=== PATIENT | female | born 1980 | race African-American/Black ===

== ENCOUNTER 2019-10-29 08:03 | Outpatient (CLI) | payer BC, SELFPAY ==
--- NOTE | 2019-11-11 02:31 | SLEEP_ITS ---
Split-Night Study. DATE OF STUDY: 10/29/2019 ORDERING PHYSICIAN: Carlos Dowell D.O. REASON FOR STUDY: Atrial fibrillation event, frequent snoring. HISTORY: This patient is a 39-year-old female, 5 feet 5 inches, 279 pounds with a body mass index of 46.4. She does have hypertension. Her complaint operator referred her because she had an episode of atrial fibrillation. She does snore frequently and occasionally is loud enough that others complain about it. She rarely awakens at night with heartburn or coughing. She does not awaken from sleep short of breath. There is a family history with her mother having sleep apnea. She occasionally has trouble sleeping with a cold. She does not gasp for breath at night or have breathing problems reported to her by others. She rarely sweats excessively at night, notices her heart pounding irregularly at night, rarely falls asleep during the day. She does not fall asleep involuntarily or while driving. She does not have loss of muscle tone with strong emotion and does not have daytime difficulties due to excessive sleepiness. She is a military exchange wireless manager. She does not have the feeling of paralysis on waking or falling asleep and she does not have vivid dreamlike scenes upon waking or falling asleep. She is never afraid to go to sleep. She rarely has nightmares, occasionally remembers her dreams, occasionally has racing thoughts. Rarely has sadness, depression, or anxiety. She does not have muscular tension or notices parts of her body jerking. She does not kick at night. She rarely has crawly achy feelings in her legs. She does not have leg pain at night and does not have morning jaw pain. She rarely grinds her teeth at night. She is not bothered by pain during the day or at night. She rarely wakes up feeling stiff in the morning with sore achy muscles or pain in the neck and spine. Normal bedtime is 11-12 midnight, falling asleep quickly, waking twice at night to use the bathroom. She wakes in the morning at 7 a.m. On the weekends, she will go to bed 1 hour later and sleep 1-2 hours later. She does watch TV before falling asleep. She does not take naps. A short nap can be refreshing. Most of the time she feels good in the morning. She feels better in the morning than other times a day. MEDICAL COMORBIDITIES: Hypertension. Atrial fibrillation July 2019, with a successful cardioversion. Snoring. MEDICATIONS: 1. Lisinopril 40 mg a day. 2. Amlodipine 5 mg a day. 3. Metoprolol 25 mg a day. 4. Aspirin 325 mg a day. HABITS: Never smoked tobacco. Caffeine, 2 cups daily. Alcohol, 1 glass on weekends. No recreational drugs. DESCRIPTION OF THE STUDY: On the Sayner Sleepiness Scale, her score is 19. This is very elevated. This was conducted as a split-night nocturnal polysomnogram using the Crovat multiple channel system including EOG, EEG, submental EMG, EKG, nasal and oral airflow using thermistors and nasal pressure sensors, chest, and abdominal belts, body position data and pulse oximetry. The study was scored using CMS guidelines. Baseline portion recording time 204.4 minutes. Sleep time 127.4 minutes. Sleep efficiency 62.3% which is low. Sleep latency prolonged 62 minutes. REM latency 129 minutes. There were 6 awakenings and she spent 15 minutes awake after sleep onset. Sleep architecture showed 9% stage 1 sleep, 80.4% stage 2 sleep, 0.4% stage 3 sleep and 10.1% stage REM. She spent 98.4% of this portion supine. She had a prolonged episode of wakefulness at the beginning, but overall her sleep was not excessively fragmented. She only had 1 brief REM episode. The apnea-hypopnea index was 6.6, all obstructive events. She had 7 obstructive hypopneas in supine REM for an index of 32.5, 2 obstructive apneas, 5 o
== END 2019-10-29 08:04 | disposition home or self-care (01) ==
LOC: ANHCSM 08:04
PROVIDERS: Visit Provider Internal Medicine Cardiovascular Disease
DX: G47.10 Hypersomnia, unspecified (principal); R06.83 Snoring
CPT/HCPCS: 95810

== ENCOUNTER 2024-06-22 00:49 | Day surgery (SDC) | payer BC, SELFPAY ==
[2024-06-01 14:13] VITALS: BMI 43.1
[2024-06-22 08:25] VITALS: BP 163/100; PULSE 73; RESP 16; TEMP 36.6; O2SAT 100
[2024-06-22 08:44] LABS: BEDSIDEPREGUCG Negative (Negative)
--- NOTE | 2024-06-22 08:48 | WPDANESEPPF ---
Anes - Initial Pre Proc Eval Procedure: Operation Date: 06/22/24 09:30 Proposed Procedures p Screening Colonoscopy - Jerel Nelson DO Date/Time: 06/22/24 08:48 Surgeon: Jerel Nelson DO Pre Op Diagnosis: Screening for malignant neoplasm of colon Patient Data Age: 44 Gender: F Height: 1.68 m Weight: 121.2 kg Last Vital Signs Temp 36.6 C 06/22/24 08:25 Pulse 73 06/22/24 08:25 Resp 16 06/22/24 08:25 BP 163/100 H 06/22/24 08:25 Pulse Ox 100 06/22/24 08:25 O2 Del Method Room Air 06/22/24 08:25 Allergies Allergy/AdvReac Type Severity Reaction Status Date / Time No Known Allergies Allergy Verified 06/22/24 08:37 Home Medications Medication Instructions Recorded Confirmed Type levonorgestrel 21 mcg/24 hr (up to 1 device intrauterine ONCE 08/02/19 06/22/24 History 8 years) 52 mg intrauterine device (Mirena) setigrlh-hpo-olwu-FA-Ca carb-vit K 1 tablet PO DAILY 08/02/19 06/22/24 History 18 mg iron-400 mcg-500 mg tablet (One-A-Day Womens Formula) aspirin 325 mg tablet,delayed 325 mg PO DAILY 08/26/19 06/22/24 History release metoprolol succinate 25 mg See Rx Instructions .Route .COMPLEX 01/13/24 06/22/24 History tablet,extended release 24 hr lisinopril 20 See Rx Instructions .Route 02/03/24 06/22/24 Rx mg-hydrochlorothiazide 12.5 mg .COMPLEX #90 tabs tablet atorvastatin 10 mg tablet 10 mg PO QHS #90 tabs 04/09/24 06/22/24 Rx flecainide 100 mg tablet See Rx Instructions .Route 04/13/24 06/22/24 Rx .COMPLEX #180 tabs amlodipine 5 mg tablet See Rx Instructions .Route 04/21/24 06/22/24 Rx .COMPLEX #90 tabs tirzepatide (weight loss) 15 See Rx Instructions .Route 05/25/24 06/22/24 Rx mg/0.5 mL subcutaneous pen .COMPLEX #6 mL injector (Zepbound) Laboratory Tests 06/22/24 08:25 POC Urine HCG, Qual Negative (Negative) Patient hx anesthesia problems: none Family hx anesthesia problems: none Results Review: All pre-operative results and documents have been reviewed as part of the pre-operative evaluation. [facility] Past Medical History Medical History (Updated 06/22/24 @ 08:48 by Alo Rivas MD) HLD (hyperlipidemia) HTN (hypertension) IUD (intrauterine device) in place Normal cardiac stress test 2011 Obesity LILIYA on CPAP Paroxysmal atrial fibrillation Prediabetes Surgical History Surgical History History of hernia surgery 7 or 8 y/o Family History Family History Grandparent Acute myocardial infarction History of blood clots Diabetes mellitus Father Chronic obstructive pulmonary disease Diabetes mellitus Hypertension Mother Hypertension Sibling Hypertension Other No family history of cardiovascular disease Social History Social History Smoking status: Never smoker Second hand tobacco smoke exposure: No Alcohol intake: current Drinks per week: 2 Substance use: never Substance use type: does not use Do You Feel Safe in your Home?: Yes Lack of Transportation: No Lack of Food: Never True Current Housing: I Have Housing Concerned About Future Housing: No Difficulty Paying Gas/Electric Bills: No Difficulty Paying for Meds: No Currently Unemployed: No Education: Master's Degree or Higher Difficulty w/ Childcare or Family Care: No Living arrangements: with family Gender identity (if verbalized by the patient): Female Spiritual care concerns: No Agree to blood products: Yes Anes - Eval Final PreProcedure Day of Procedure 06/22/24 08:48 Patient weight: morbidly obese Heart: regular rate and rhythm Lungs: clear to auscultation Airway: Mallampati scale class II Neurological: alert and oriented Last oral intake: >/= 8 hours ASA classification: III Emergent: no Anesthetic plan: pr
[2024-06-22] MEDS: LACTATED RINGERS 1,000 ML 150 ML IV CONT (08:50)
--- NOTE | 2024-06-22 09:24 | PM.IMHP ---
H&P: HPI History of Present Illness Date/Time: 06/22/24 09:24 Chief Complaint: screening for colorectal cancer Narrative: this is a 44-year-old woman who presents for colonoscopy. She has never had a colonoscopy before. She denies any hematochezia or melena. She denies any family history of colon cancer. Review of Systems Review of Systems: All systems reviewed & are unremarkable except as noted in HPI and below Constitutional: Constitutional: Denies chills, Denies fever(s), Denies headache(s) and Denies weight loss Eyes: Eyes: Denies change in vision ENT: Denies dizziness, Denies headache(s), Denies neck mass and Denies throat swelling Cardiovascular: Cardiovascular: Denies chest pain, Denies lightheadedness and Denies dyspnea Respiratory: Respiratory: Denies cough, Denies dyspnea and Denies wheezing Gastrointestinal: Gastrointestinal: Denies abdominal pain, Denies change in bowel habits, Denies nausea and Denies vomiting Genitourinary: Genitourinary: Denies hematuria and Denies dysuria Musculoskeletal: Musculoskeletal: Reports as per HPI Integumentary/Breasts: Skin/Breast: Reports as per HPI Neurologic: Denies dizziness and Denies headache(s) Allergic/Immunologic: Allergic/Immunologic: Denies throat swelling and Denies wheezing [facility] Past Medical History Medical History (Updated 06/22/24 @ 09:25 by Jerel Nelson DO) HLD (hyperlipidemia) HTN (hypertension) IUD (intrauterine device) in place Normal cardiac stress test 2011 Obesity LILIYA on CPAP Paroxysmal atrial fibrillation Prediabetes Surgical History Surgical History History of hernia surgery 7 or 8 y/o Family History Family History Grandparent Acute myocardial infarction History of blood clots Diabetes mellitus Father Chronic obstructive pulmonary disease Diabetes mellitus Hypertension Mother Hypertension Sibling Hypertension Other No family history of cardiovascular disease Social History Social History Smoking status: Never smoker Second hand tobacco smoke exposure: No Alcohol intake: current Drinks per week: 2 Substance use: never Substance use type: does not use Do You Feel Safe in your Home?: Yes Lack of Transportation: No Lack of Food: Never True Current Housing: I Have Housing Concerned About Future Housing: No Difficulty Paying Gas/Electric Bills: No Difficulty Paying for Meds: No Currently Unemployed: No Education: Master's Degree or Higher Difficulty w/ Childcare or Family Care: No Living arrangements: with family Gender identity (if verbalized by the patient): Female Spiritual care concerns: No Agree to blood products: Yes Meds Home Medications and Allergies Home Medications Medication Instructions Recorded Confirmed Type levonorgestrel 21 mcg/24 hr (up to 1 device intrauterine ONCE 08/02/19 06/22/24 History 8 years) 52 mg intrauterine device (Mirena) gcxwqele-glc-epqg-FA-Ca carb-vit K 1 tablet PO DAILY 08/02/19 06/22/24 History 18 mg iron-400 mcg-500 mg tablet (One-A-Day Womens Formula) aspirin 325 mg tablet,delayed 325 mg PO DAILY 08/26/19 06/22/24 History release metoprolol succinate 25 mg See Rx Instructions .Route .COMPLEX 01/13/24 06/22/24 History tablet,extended release 24 hr lisinopril 20 See Rx Instructions .Route 02/03/24 06/22/24 Rx mg-hydrochlorothiazide 12.5 mg .COMPLEX #90 tabs tablet atorvastatin 10 mg tablet 10 mg PO QHS #90 tabs 04/09/24 06/22/24 Rx flecainide 100 mg tablet See Rx Instructions .Route 04/13/24 06/22/24 Rx .COMPLEX #180 tabs amlodipine 5 mg tablet See Rx Instructions .Route 04/21/24 06/22/24 Rx .COMPLEX #90 tabs tirzepatide (weight loss) 15 See Rx Instructions .Route 05/25/24 06/22/24 Rx mg/0.5 mL subcutaneous pen .COMPLEX
[2024-06-22 09:55] VITALS: BP 150/93; PULSE 66; RESP 22; O2SAT 100
[2024-06-22 10:05] VITALS: BP 165/94; PULSE 61; RESP 19; O2SAT 100
[2024-06-22 10:15] VITALS: BP 170/93; PULSE 62; RESP 20; O2SAT 100
== END 2024-06-22 10:29 | disposition home or self-care (01) ==
PROVIDERS: Anesthesiology; PCP Family Medicine; Visit Provider Surgery
PROC: 0DJD8ZZ Inspection of Lower Intestinal Tract, Via Natural or Artificial Opening Endoscopic (ICD-10-PCS; CPT 45378; principal; 2024-06-22 09:30)
DX: Z12.11 Encounter for screening for malignant neoplasm of colon (principal); D12.3 Benign neoplasm of transverse colon; E78.5 Hyperlipidemia, unspecified; I10 Essential (primary) hypertension; R73.03 Prediabetes; G47.33 Obstructive sleep apnea (adult) (pediatric); I48.0 Paroxysmal atrial fibrillation; E66.01 Morbid (severe) obesity due to excess calories; Z68.41 Body mass index [BMI] 40.0-44.9, adult; Z79.82 Long term (current) use of aspirin; Z79.85 Long-term (current) use of injectable non-insulin antidiabetic drugs; Z98.890 Other specified postprocedural states; Z82.49 Family history of ischemic heart disease and other diseases of the circulatory system
CPT/HCPCS: 45380; 88305; J2003; J2704; J7120

== ENCOUNTER 2025-04-30 12:17 | Outpatient (CLI) | payer BC, SELFPAY ==
--- OUTSIDE RECORDS SUMMARY | 2025-04-30 12:22 | XMS_ITS | Clinical Summary ---
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 Gender Identity Not on file Sexual Orientation Not on file Plan of Treatment Health Maintenance Due Date Last Done Comments Hepatitis C Virus (HCV) Screening 1979 TdaP Immunization 1979 Hepatitis B Immunization (1 of 3 - 19+ 3-dose series) 1998 Pap Smear 2000 Cervical Cancer Screening (CCS) 2009 HPV/Cotest 2009 Cologuard 2024 Colonoscopy 2024 Colorectal Cancer Screening 2024 Immunochemical Fecal Occult Blood 2024 SARS-COV-2 Immunization ( season) 2024 08/25/2021, 12/24/2020, 12/03/2020 Influenza Immunization (#1) 05/09/202506/08, 08/08/2020 Respiratory Syncytial Virus (RSV) Immunization (Adult) (1 - 1-dose 75+ series) 2054 Human Papillomavirus (HPV) Immunization Aged Out No longer eligible b ased on patient's age to complete this topic Meningococcal Immunization (ACWY) Aged Out No longer eligible b ased on patient's age to complete this topic Pneumococcal Immunization Combined Aged Out No longer eligible b ased on patient's age to complete this topic Rotavirus Immunization Aged Out No lo nger eligible based on patient's age to complete this topic
[2025-04-30 12:54] LABS: INR 1.0; Prothrombin Time 13.0 Seconds (11.1-14.7)
[2025-04-30 12:55] LABS: Partial Thromboplastin Time 25.5 Seconds (22.3-36.8)
[2025-04-30 12:58] LABS: Alanine Aminotransferase 22 U/L (6-35); Albumin Level 4.2 g/dL (3.5-5.1); Alkaline Phosphatase 40 U/L (38-126); Anion Gap 6 mmol/L (4-12); Aspartate Amino Transferase 30 U/L (14-36); Bilirubin,Total 1.9 mg/dL (0.2-1.3); Blood Urea Nitrogen 22 mg/dL (7-17); Calcium 8.9 mg/dL (8.4-10.2); Carbon Dioxide 26 mmol/L (22-30); Chloride 104 mmol/L (98-107); Estimated Glomerular Filt Rate 50; Glucose 101 mg/dL (65-110); Potassium 3.8 mmol/L (3.4-5.0); Sodium 136 mmol/L (137-145); Total Protein 7.2 g/dL (6.3-8.2)
== END 2025-04-30 12:18 | disposition home or self-care (01) ==
PROVIDERS: Anesthesiology; PCP Family Medicine; Visit Provider Obstetrics & Gynecology
DX: E78.5 Hyperlipidemia, unspecified (principal); I48.91 Unspecified atrial fibrillation; I12.9 Hypertensive chronic kidney disease with stage 1 through stage 4 chronic kidney disease, or unspecified chronic kidney disease; N18.9 Chronic kidney disease, unspecified; D21.9 Benign neoplasm of connective and other soft tissue, unspecified
CPT/HCPCS: 36415; 80053; 85610; 85730; 86850; 86900; 86901

== ENCOUNTER 2025-05-03 01:16 | Day surgery (SDC) | payer BC, SELFPAY ==
[2025-04-29 10:05] VITALS: BMI 40.3
--- NOTE | 2025-04-29 10:17 | PC.NURSE ---
Report to the Outpatient Waiting Room, entrance under the green pavilion located off [facility], at time __0600am on date __05/03/25 . Planned Procedure Time: 0730am .? Time changes happen often and if your time is changed the preop area will call you the afternoon before. - You and your visitor will be asked to self-screen and do not enter if you have any COVID symptoms. Please call surgeon if you need to reschedule. - A mask is optional within the hospital at this time. Patients may have clear liquids (water, carbonated beverages, clear teas, apple juice) until 3 hours prior to surgery with a maximum of 20 ounces. - No food from midnight until time of surgery and no smoking, or chewing tobacco (or any form of nicotine). No chewing gum, candy or mints. (0430am) Take only the following medications with a SIP of water on the morning of surgery: Amlodipine and Metoprolol DO NOT STOP ANY OF YOUR OTHER PRESCRIPTION MEDICATIONS PRIOR TO SURGERY EXCEPT THE FOLLOWING Hold all vitamins and supplements for 3 days per anesthesiologist. Today is last dose 04/29/25. Medications to discontinue per physician __ASPIRIN per DR ENCINAS starting today Date to take last dose 04/29/25 HOLD Mounjaro till post op. Pt last dose was 04/26/25. Please no make-up, nail filipino, hairspray, perfume, deodorant, or body powder the day of surgery.? No jewelry (including any body piercings) or valuables the day of surgery, leave them at home.? Please take a shower or bath the night before, or the morning of, surgery with an antibacterial soap.? Wear comfortable, loose fitting clothing.?Overnight bag and good shoes - Jewelry must be removed prior to entering the operating room.? Rings and piercings that are not removed may be cut off. - The hospital will not accept responsibility for valuables.? - Please leave all valuables, including medications, at home the day of surgery. If you are going home after surgery, a licensed stock car driver must drive you home.? - NO public transportation without another adult if you receive anesthesia. - We recommend that an adult stay with you for 24 hours following discharge. - We also recommend that you do not drive, make important decision, drink alcoholic beverages, or take any drugs that were not prescribed by your health care provider for at least 24 hours after your discharge time. Follow any additional instructions given to you from your surgeon. Pt to get labs tomorrow at [facility] lab at [place]. Telephone instructions given to ___Patient and asked if any additional questions and then verbalized understanding. Patient advised to call surgeon office or pre surgery nurse liaison [phone] if any additional questions.
[2025-05-03] VITALS (12 sets, daily range): BP systolic 93–151; BP diastolic 50–88; PULSE 60–81; RESP 12–20; TEMP 36.2–36.8; O2SAT 97–100
--- OUTSIDE RECORDS SUMMARY | 2025-05-03 01:21 | XMS_ITS | Clinical Summary ---
Author Organization [facility] Address [address] [place] [address] Care Team Providers Care Doorshaker Name Role Phone Lindsey Melton DO Primary Care Provider [phone] Active Problems Problem Noted Date Diagnosed Date Atrial fibrillation 07/13/2014 Overview (12/13/2016): Atrial fibrillation Encounters Date Type Department Care Team Description 05/02/2025 9:00 AM CDT - 05/02/2025 11:59 PM CDT Hospital Encounter [facility] Breast [facility] ([facility] [address] [place] [address] Screening mammogram, encounter for Discharge Disposition: Discharge to home or self care from Last 3 Months Medical History Medical History Date Comments Hx Other Medical Obesity Hypertension Hypertension Hx Other Medical C section Hx Other Medical PAF Family History Medical History Relation Name Comments hodgkins disease Father Breast cancer Sister Relation Name Status Comments Father Sister Social History Tobacco Use Types Packs/Day Years Used Date Smoking Tobacco: Never Assessed Comments Unknown Sex and Gender Information Value Date Recorded Sex Assigned at Not on file 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 Gender Identity Not on file Sexual Orientation Not on file Obstetrics History Para Term AB IAB SAB Ectopic Multiple Livin g Live Births 2 2 Date Outcome GA Total Labor Labor/2nd/3rd Weight Sex Type Anes PTL Melina A1 A5 Name Clin Last Filed Vital Signs Vital Sign Reading Time Taken Comments Blood Pressure 122/82 07/13/2014 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 Pulse 68 07/13/2014 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 Temperature - - Respiratory Rate - - Oxygen Saturation - - Inhaled Oxygen Concentration - - Weight 110.7 kg (244 lb) 05/02/2025 9:08 AM CDT Height 167.6 cm (5' 6) 05/02/2025 9:08 AM CDT Body Mass Index 39.38 05/02/2025 9:08 AM CDT Plan of Treatment Health Maintenance Due Date Last Done Comments Cervical Cancer Screening 1979 Colon Cancer Screening-Colonoscopy 1979 Depression Screening 1979 Hepatitis C Screening 1979 Hepatitis B Screening 1997 Regular Well Visit/Exam 18-64 1997 Breast Cancer Screening-Mammogram 04/28/2025 04/28/2024, 04/21/2023, 04/08/2022, Additional history exists Influenza Vaccine (#1) 2025 , 08/08/2020, 06/06/2016, Additional history exists DTaP/Tdap/Td Vaccine (4 - Td or Tdap) 05/13/2033 05/13/2023, 05/13/2023, 01/15/2013 HPV Vaccines Aged Out No longer eligi ble based on patient's age to complete this topic Pneumococcal vaccine <65 Aged Out No longer eligible based on patient's age to complete this topic Procedures Procedure Name Priority Date/Time Associated Diagnosis Comments DIAGNOSTIC MAMMOGRAM BILATERAL W ERASMO Schedule Routine, Read Routine (OP Routine) 04/28/2024 8:26 AM CDT Mastodynia Dense breast tissue on mammogram, unspecified type from Last 3 Months or Most Recently Relevant to Health Maintenance Results * Diagnostic Mammogram Bilateral W Erasmo (04/28/2024 8:26 AM CDT) Anatomical Region Laterality Modality Breast Bilateral Mammography 04/28/2024 8:29 AM CDT Impressions 04/28/2024 10:32 AM CDT No mammographic evidence of malignancy in either breast. OVERALL FINAL ASSESSMENT: BI-RADS Category 1: Negative. RECOMMENDATION: 1. Annual screening mammography is recommended. 2. Clinical follow-up is recommended. Dr. Ni discussed the above findings and recommendation for annual screening mammography with the patient, who expressed her understanding of the management plan. Dictated by: Lev Ni M.D. The radiology attending physician has personally reviewed this study, and had reviewed and/or edited this written report and agrees with it. Electronically signed by: Beronica Christopher M.D. Narrative 04/28/2024 10:32 AM CDT EXAMINATION: BILATERAL DIGITAL DIAGNOSTIC MAMMOGRAM INCLUDING CAD AND BILATERAL DIGITAL BREAST TOMOSYNTHESIS HISTORY: 44-year-old woman with family history of breast cancer in her sister presents with bilateral intermittent nonfocal breast pain, greater on the left. The patient reports that the pain moves around in the breast. She is not having breast pain today. COMPARISON: Mammograms dated 03/15/2021, 04/08/2022, 05/10/2022, and 07/22/2023. TECHNIQUE: Full field digital mammographic views of BOTH breasts were performed, including computer aided detection (CAD) and BILATERAL digital breast tomosynthesis (DBT). BREAST PARENCHYMAL COMPOSITION: There are scattered areas of fibroglandular density. MAMMOGRAM FINDINGS: A questionable asymmetry in the left central breast middle depth seen only on the craniocaudal view does not persist on spot compression view and most likely reflected superimposition of normal breast tissue. There is no mass, calcification or architectural distortion suggestive of malignancy within EITHER breast. Procedure Note Beronica Christopher MD - 04/28/2024 EXAMINATION: BILATERAL DIGITAL DIAGNOSTIC MAMMOGRAM INCLUDING CAD AND BILATERAL DIGITAL BREAST TOMOSYNTHESIS HISTORY: 44-year-old woman with family history of breast cancer in her sister presents with bilateral intermittent nonfocal breast pain, greater on the left. The patient reports that the pain moves around in the breast. She is not having breast pain today. COMPARISON: Mammograms dated 03/15/2021, 04/08/2022, 05/10/2022, and 07/22/2023. TECHNIQUE: Full field digital mammographic views of BOTH breasts were performed, including computer aided detection (CAD) and BILATERAL digital breast tomosynthesis (DBT). BREAST PARENCHYMAL COMPOSITION: There are scattered areas of fibroglandular density. MAMMOGRAM FINDINGS: A questionable asymmetry in the left central breast middle depth seen only on the craniocaudal view does not persist on spot compression view and most likely reflected superimposition of normal breast tissue. There is no mass, calcification or architectural distortion suggestive of malignancy within EITHER breast. IMPRESSION: No mammographic evidence of malignancy in either breast. OVERALL FINAL ASSESSMENT: BI-RADS Category 1: Negative. RECOMMENDATION: 1. Annual screening mammography is recommended. 2. Clinical follow-up is recommended. Dr. Ni discussed the above findings and recommendation for annual screening mammography with the patient, who expressed her understanding of the management plan. Dictated by: Lev Ni M.D. The radiology attending physician has personally reviewed this study, and had reviewed and/or edited this written report and agrees with it. Electronically signed by: Beronica Christopher M.D. Lindsey Melton DO IMG MAMMO PROCEDURES Final Result from Last 3 Months or Most Recently Relevant to Health Maintenance Insurance [employer] [facility] Care Teams Doorshaker Relationship Specialty Start Date End Date Lindsey Melton DO PCP - General Family Medicine 01/24/21
--- OUTSIDE RECORDS SUMMARY | 2025-05-03 01:21 | XMS_ITS | Clinical Summary ---
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
[2025-05-03] MEDS: ACETAMINOPHEN 500 MG TABLET 1000 MG PO ×3 (06:42→19:01)
[2025-05-03] MEDS: LACTATED RINGERS 1,000 ML 30 ML IV CONT ×2 (06:45→09:40)
[2025-05-03] MEDS: KETOROLAC 15 MG/ML VIAL (*BKC) IV PUSH (06:45)
--- NOTE | 2025-05-03 06:51 | P.PNAN_ITS ---
Anes - Initial Pre Proc Eval Procedure: Operation Date: 05/03/25 07:30 Proposed Procedures p Robotic Assisted Laparoscopic Hysterectomy with Bilateral Salpingectomy - Jurgne Shay MD Date/Time: 05/03/25 06:51 Surgeon: Jurgen Shay MD Pre Op Diagnosis: Intramural Submucous Subcerous Leiomyoma Patient Data Age: 45 Gender: F Height: 1.65 m Weight: 110 kg Allergies Allergy/AdvReac Type Severity Reaction Status Date / Time No Known Allergies Allergy Verified 05/03/25 06:57 Home Medications ?Medication ?Instructions ?Recorded ?Confirmed ?Type levonorgestrel (Mirena) 1 device intrauterine ONCE 1 10/02/18 04/29/25 History [id number]-Ca carb-vit K 1 tablet PO DAILY 1 10/02/18 04/29/25 History 18 mg iron-400 mcg-500 mg tablet (One-A-Day Womens Formula) aspirin 325 mg tablet,delayed 325 mg PO DAILY 08/26/19 04/29/25 History release Held on 06/22/24. Instructions: Resume on 06/23/24. Resume Aspirin on Friday. metoprolol succinate 25 mg See Rx Instructions .Route .COMPLEX 01/13/24 04/29/25 History tablet,extended release 24 hr flecainide 100 mg tablet See Rx Instructions .Route 1 09/08/23 04/29/25 Rx .COMPLEX #180 tabs amlodipine 5 mg tablet See Rx Instructions .Route 0 01/27/25 04/29/25 Rx .COMPLEX #90 tabs tirzepatide 15 mg/0.5 mL 15 mg (0.5 mL) subcut WEEKLY #2 mL 04/04/25 04/29/25 Rx subcutaneous pen injector (Mounjaro) atorvastatin 10 mg tablet See Rx Instructions .Route 0 04/08/25 04/29/25 Rx .COMPLEX #90 tabs hydrochlorothiazide 25 mg tablet 25 mg PO DAILY #90 ta bs 04/29/25 Rx lisinopril 20 mg tablet 20 mg PO BID #180 tabs 04/29 Rx Patient hx anesthesia problems: none Family hx anesthesia problems: none Results Review: All pre-operative results and documents have been reviewed as part of the pre- operative evaluation. [facility] Past Medical History Medical History Obesity LILIYA on CPAP HTN (hypertension) IUD (intrauterine device) in place HLD (hyperlipidemia) Normal cardiac stress test 2011 Paroxysmal atrial fibrillation Prediabetes Surgical History Surgical History History of hernia surgery 7 or 8 y/o Family History Family History Grandparent Acute myocardial infarction History of blood clots Diabetes mellitus Father Chronic obstructive pulmonary disease Diabetes mellitus Hypertension Mother Hypertension Sibling Hypertension Other No family history of cardiovascular disease Social History Social History Smoking status: Never smoker Second hand tobacco smoke exposure: Yes Alcohol intake: current Drinks per week: 1 Alcohol use details: 4 per month Substance use: never Substance use type: does not use Do You Feel Safe in your Home?: Yes Lack of Transportation: No Lack of Food: Never True Current Housing: I Have Housing Concerned About Future Housing: No Difficulty Paying Gas/Electric Bills: No Difficulty Paying for Meds: No Currently Unemployed: No Education: Master's Degree or Higher Difficulty w/ Childcare or Family Care: No Living arrangements: with family Additional living arrangements comments: Gender identity (if verbalized by the patient): Female Spiritual care concerns: No Agree to blood products: Yes Anes - Eval Final PreProcedure Day of Procedure 05/03/25 06:51 Patient weight: morbidly obese Heart: regular rate and rhythm Lungs: clear to auscultation Airway: Mallampati scale class 1 Neurological: alert and oriented Last oral intake: >/= 8 hours ASA classification: III Emergent: no Anesthetic plan: proceed Anesthesia type and monitoring: general ETT and standard monitoring Results Review: All pre-operative results and documents have been reviewed as part of the pre- operative evaluation. Informed Consent: The patient's anesthetic plan and its attendant risks and benefits were discussed with the patient/family/POA. Questions were solicited and answers provided to the satisfaction of the patient/family/POA.
[2025-05-03 07:12] LABS: BEDSIDEPREGUCG Negative (Negative)
--- NOTE | 2025-05-03 07:19 | WPDHPUPDATE1 ---
History and Physical Update Update Date/Time: 05/03/25 07:19 History and Physical has been reviewed, including an updated exam of the patient. There are NO changes in the patient's condition. Risks, benefits, and alternatives have been discussed and questions answered. Patient agrees to proceed with procedure.
[2025-05-03] MEDS: ceFAZolin 2 GM in SODIUM CHLORIDE 0.9% IV 50 ML 100 ML IVPB (07:28)
--- NOTE | 2025-05-03 08:31 | S_PTH ---
PATIENT: Niyah Bah LOC: [facility] U#:[id number] AGE/SX: 45/F ROOM: RE05/03/[address]: Jurgen Shay MD : 1980 BED: DIS: 05/04/2025 SPEC #: [id number] RECD: 05/03/25 09:53 STATUS: MASOUD REQ #: [id number] LARRY: 05/03/25 08:[address]: Jurgen Shay DEPT: [facility] Surgical RECD BY: Jade Bill ENTERED: 05/03/25 09:53 SP TYPE: Surgical OTHR DR: Lindsey Melton DO Tissues: A - Uterus Procedures: Hematoxylin and Eosin Stain Gross and Microscopic Level 5
[2025-05-03] MEDS: METHYLENE BLUE 0.5% INJ 10 ML AMPULE IV PUSH (09:10)
--- NOTE | 2025-05-03 09:53 | W.PM.PROC2 ---
Procedure Note - Detailed Date of Procedure 05/03/25 Pre-op Diagnosis Intramural Submucous Subcerous Leiomyoma Post-op Diagnosis Same Procedure Performed Robot assisted Total hysterectomy with bilateral salpingectomy. Surgeon Jurgen Shay MD Anesthesia General Indications heavy vaginal bleeding, pelvic pain Findings Enlarged-15 cm-fibroid uterus, normal-appearing fallopian tubes and ovaries Description of Procedure This patient was taken to the operating room. She was prepped and draped in the dorsal lithotomy position after induction of general anesthesia. The uterine manipulator and Amado cup were placed. This was done with a speculum and tenaculum. The speculum was placed. The cervix was grasped with a tenaculum. The stay sutures were placed at 3 and 9:00 a.m.. The stay sutures of 0 Vicryl were tied to the appropriately Size scope after it was slipped around the cervix.. The tip of the AUGUSTA manipulator was placed in the intrauterine cavity. The cup was slid into place around the cervix and into the fornices. It was locked into place. The sutures were then wrapped around the handle and tied under tension. A 8 mm skin incision was made in the left upper quadrant the abdomen. a 5 mm Visiport trocar was inserted into abdominal cavity and pneumoperitoneum was achieved. A 8 mm supraumbilical incision was made and a 8 mm trocar was inserted into the intrauterine cavity under direct visualization of the scope. an 8 mm incision was made in the right upper quadrant of the abdomen and an 8 mm robotic trocar was placed the inter uterine cavity under direct visualization the scope. An 11 mm trocar was inserted in the right upper quadrant of the abdomen rectal is a cystoscope after an incision was made there as well. The robot was docked. Electronic Orientation of the robot was performed. Bilateral ureteral lysis was performed. This was done from the pelvic brim down to the uterine artery. This was done with careful dissection using sharp and blunt dissection. The fallopian tubes were removed bilaterally. The mesosalpinx around the fallopian tubes were cauterized transected with LigaSure cautery. This was done in a bilateral fashion from the ovary to the uterine cornua. The fallopian tube was transected at the uterine cornu and amputated. The tube was taken out the left lower quadrant trocar site. In a stepwise fashion along the lateral aspects of the uterus the round ligament and broad ligaments were cauterized transected down to the level of the uterine arteries. A bladder flap was created in the bladder was moved distally to the end of the cervix and over the Amado cup. The bilateral uterine arteries were cauterized and transected. Colpotomy was then performed. In a circumferential fashion the vagina was transected using unipolar cautery. The incision was made down on the Amado cup. The uterus and cervix were taken out through the vagina. A pneumo occluder was placed in the vagina. The vaginal cuff was closed with a 0 V lock suture in a running fashion. The pelvis was irrigated with copious amounts antibiotic irrigation. The ureters were again examined and found to be intact and flowing freely under the uterine arteries into the bladder. The bladder was intact. It was examined directly. Cystoscopy was performed after administration of methylene blue. The cystoscope was inserted. Bladder was distended with fluid. The ureteric meatus was observed bilaterally. Blue fluid was seen to egress bilaterally. The bladder was drained and the cystoscope was withdrawn. The vagina was irrigated with Betadine solution after removal of the Pneumo occluder. the trocars were removed after the robot was undocked. The skin was closed with subacute or Dermabond. The patient was taken to recovery room. She was stable condition. Sponge lap and needle counts were correct x2. Estimated Blood Loss 125 Urine Output 800 Drains Yes Packing No Pathology Yes Complications No immediate complications Condition Stable Disposition Floor
[2025-05-03] MEDS: fentaNYL CITRATE INJ (*CRX) 100 MCG/2 ML VIAL 25 MCG IV PUSH ×4 (10:01→10:33)
--- NOTE | 2025-05-03 10:55 | ADMGEN ---
This patient, Niyah Angulo, was admitted to OB 2nd Floor Room 288-00. Patient/family oriented to hospital policies and general routines including ID bracelet, bed and alarms, visiting hours, pain management, procedures, bathroom and other care routines, personal items, smoking policy, room service/diet, and visiting hours. Information on how to activate the Rapid Response Team has been discussed. Patient/Family are encouraged to report perceived risks to care and to ask questions if they do not understand what they are told or what they should do.
[2025-05-03] MEDS: KETOROLAC 30 MG/ML VIAL (*BKC) IV PUSH ×2 (11:41→19:00)
[2025-05-03] MEDS: SIMETHICONE 80 MG TAB.CHEW PO ×2 (11:42→19:01)
[2025-05-03] MEDS: DEXTROSE 5%/0.45% SOD CHL 1,000 ML 125 ML IV CONT (11:44)
[2025-05-03] MEDS: ONDANSETRON INJ 4 MG/2 ML VIAL IV PUSH (12:55)
[2025-05-03] MEDS: oxyCODONE HCL (*CRX) 5 MG TAB IR PO (14:25)
[2025-05-03] MEDS: METOCLOPRAMIDE HCL INJ 10 MG/2 ML VIAL IV PUSH (18:59)
[2025-05-04] MEDS: KETOROLAC 30 MG/ML VIAL (*BKC) IV PUSH (00:51)
[2025-05-04] MEDS: ACETAMINOPHEN 500 MG TABLET 1000 MG PO ×2 (00:52→08:34)
[2025-05-04 04:30] VITALS: BP 128/74; PULSE 61; RESP 18; TEMP 36.4; O2SAT 97
--- NOTE | 2025-05-04 07:55 | WPDANESPN ---
Anes - Prog Note Post-Op Date/Time: 05/04/25 07:55 Cardiovascular status: normal Respiratory status: normal Airway patency: baseline Mental status: baseline Post-Op hydration status: normal Vital Signs: Last Vital Signs Temp 97.6 F 05/04/25 04:30 Pulse 61 05/04/25 04:30 Resp 18 05/04/25 04:30 BP 128/74 05/04/25 04:30 Pulse Ox 97 05/04/25 04:30 O2 Del Method Room Air 05/03/25 23:15 O2 Flow Rate 8 05/03/25 09:45 Pain Score (VAS): 0/10 I/O: Intake & Output 05/03/25 05/03/25 05/04/25 15:59 23:59 07:59 Intake Total 1100 Output Total 1965 1200 Balance -865 -1200 Post-procedural complaints: none Patient Feedback: Patient satisfied with anesthetic care.
[2025-05-04 08:05] VITALS: BP 129/81; PULSE 58; RESP 18; TEMP 36.6; O2SAT 99
[2025-05-04] MEDS: DOCUSATE SODIUM 100 MG CAPSULE PO (08:33)
[2025-05-04] MEDS: IBUPROFEN 600 MG TABLET PO (08:33)
[2025-05-04] MEDS: THERAPEUTIC MULTIVITAMINS/MINERALS TAB (*BKC) 1 TABLET PO (08:33)
[2025-05-04] MEDS: SIMETHICONE 80 MG TAB.CHEW PO ×2 (08:33→11:11)
--- NOTE | 2025-05-04 11:07 | P.PNOB_ITS ---
[employer] - A/P Postoperative Procedures: Procedures Operation Date: 05/03/25 07:30 Actual Procedure Side Surgeon p Robotic Assisted Laparoscopic Hysterectomy with Bilateral Salpingectomy Bilateral Jurgen Shay MD Postoperative day: 1 Postoperative status: doing well Postoperative plan: see orders Time Spent With Patient Time: Total time spent is greater than 50% in coordination of care (as documented) at patient's floor/unit and/or counseling patient: Time with patient: less than 15 minutes [employer]- PN:Subj Post-Op Subjective Date/time seen: 05/04/25 11:07 Subjective: patient reports feeling better, patient has no complaints and pain is well controlled Exam Const: General: healthy appearing, comfortable and no acute distress Resp: Auscultation: clear to auscultation bilaterally, no rales, no rhonchi and no wheezes Cardio: Rate: regular rate Heart sounds: no click, no murmurs and no rubs GI: Inspection: non-distended Auscultation: normal bowel sounds Extrem: General: normal to inspection, no pedal edema and no calf tenderness [employer] - PN: Obj Data Vital Signs Vital Signs: Vital Signs - 24 hr 05/03/25 15:25 05/03/25 15:25 05/03/25 19:16 Temperature 97.7 F 97.4 F L Pulse Rate 65 60 Respiratory Rate 12 16 Blood Pressure 151/88 H 140/80 Pulse Oximetry 99 100 Oxygen Delivery Room Air 05/03/25 20:00 05/03/25 23:15 05/03/25 23:15 Temperature 98.2 F Pulse Rate 60 77 77 Respiratory Rate 16 18 18 Blood Pressure 128/78 Pulse Oximetry 100 97 97 Oxygen Delivery Room Air Room Air 05/04/25 04:30 05/04/25 08:05 Temperature 97.6 F 98 F Pulse Rate 61 58 L Respiratory Rate 18 18 Blood Pressure 128/74 129/81 Pulse Oximetry 97 99 Oxygen Delivery Intake/Output Intake/Output: Intake & Output 05/01/25 05/02/25 05/03/25 05/04/25 23:59 23:59 23:59 23:59 Intake Total 1100 Output Total 3165 Balance -2065 Meds/Results Medications: Active Medications Generic Name Dose Route Start Last Admin Trade Name Freq PRN Reason Stop Dose Admin Acetaminophen 1,000 mg 05/03/25 12:00 05/04/25 08:34 Acetaminophen 500 Mg Tablet PO 1,000 mg Q6HR ADAMA Administration Amlodipine Besylate 5 mg 05/04/25 09:00 05/04/25 08:40 Amlodipine Besylate 5 Mg Tablet PO 5 mg DAILY ADAMA Administration Aspirin 325 mg 05/04/25 09:00 05/04/25 09:03 Aspirin 325 Mg Enteric Tablet PO Not Given DAILY ADAMA Docusate Sodium 100 mg 05/03/25 17:00 05/04/25 08:33 Docusate Sodium 100 Mg Capsule PO 100 mg BID ADAMA Administration Hydrochlorothiazide 25 mg 05/04/25 09:00 05/04/25 08:33 Hydrochlorothiazide 25 Mg Tablet PO 25 mg DAILY ADAMA Administration Dextrose/Sodium Chloride 1,000 mls @ 125 mls/hr 05/03/25 10:52 05/04/25 09:03 Dextrose 5% Sodium Chloride 0.45% IV CONT Not Given .Q8H ADAMA Ibuprofen 600 mg 05/04/25 06:00 05/04/25 08:33 Ibuprofen 600 Mg Tablet PO 600 mg Q6HR ADAMA Administration Lisinopril 20 mg 05/03/25 21:00 05/04/25 08:33 Lisinopril 20 Mg Tablet PO 20 mg Q12HR [facility] Administration Metoclopramide HCl 10 mg 05/03/25 17:54 05/03/25 18:59 Metoclopramide Hcl Inj 10 Mg/2 Ml Vial IV PUSH 10 mg Q6HR PRN Administration Vomiting Multivitamins/Calcium 1 tablet 05/04/25 09:00 05/04/25 08:33 Therapeutic Multivitamins/Minerals Tab (*Bkc) PO 1 tablet DAILY ADAMA Administration Naloxone HCl 0.1 mg 05/03/25 10:52 Naloxone Hcl 0.4 Mg/Ml Vial IV PUSH Q2M PRN Respiratory rate less than 10 Non-Formulary Medication 15 mg 05/10/25 09:00 Tirzepatide [Mounjaro] SUB-Q 06/09/25 08:59 WEEKLY [facility] Ondansetron HCl 4 mg 05/03/25 10:52 05/03/25 12:55 Ondansetron Inj 4 Mg/2 Ml Vial IV PUSH 4 mg Q6H PRN Administration Nausea And Vomiting Oxycodone HCl 5 mg 05/03/25 10:52 05/03/25 14:25 Oxycodone Hcl (*Crx) 5 Mg Tab Ir PO 5 mg Q4H PRN Administration Pain Rated 4-6 Oxycodone HCl 10 mg 05/03/25 10:52 Oxycodone Hcl (*Crx) 5 Mg Tab Ir PO Q6H PRN Pain Rated 7-10 Simethicone 80 mg 05/03/25 12:00 05/04/25 08:33 Simethicone 80 Mg Tab.Chew PO 80 mg TIDWM ADAMA Administration
== END 2025-05-04 12:42 | disposition home or self-care (01) ==
LOC: ANHSURGERY 06:02 → ANHOB2 10:57
PROVIDERS: PCP Family Medicine; Visit Provider Obstetrics & Gynecology
PROC: (CPT 58571; principal; 2025-05-03 07:30)
DX: D25.1 Intramural leiomyoma of uterus (principal); N70.11 Chronic salpingitis; N80.03 Adenomyosis of the uterus; N88.8 Other specified noninflammatory disorders of cervix uteri; N87.9 Dysplasia of cervix uteri, unspecified; G89.18 Other acute postprocedural pain; I10 Essential (primary) hypertension; E78.5 Hyperlipidemia, unspecified; I48.0 Paroxysmal atrial fibrillation; R73.03 Prediabetes; G47.33 Obstructive sleep apnea (adult) (pediatric); E66.01 Morbid (severe) obesity due to excess calories; Z68.41 Body mass index [BMI] 40.0-44.9, adult; Z79.82 Long term (current) use of aspirin; Z79.85 Long-term (current) use of injectable non-insulin antidiabetic drugs; Z99.89 Dependence on other enabling machines and devices; Z98.890 Other specified postprocedural states; Z97.5 Presence of (intrauterine) contraceptive device; Z80.3 Family history of malignant neoplasm of breast; Z82.49 Family history of ischemic heart disease and other diseases of the circulatory system; Z80.7 Family history of other malignant neoplasms of lymphoid, hematopoietic and related tissues
CPT/HCPCS: 58571; S2900; 88307; 99199; J0690; A9270; J1100; J1171; J1885; J2003; J2250; J2405; J2704; J2765; J3010; J7030; J7120; Q9968